=== PATIENT | male | born 1935 | race Caucasian/White ===

== ENCOUNTER 2016-12-20 20:09 | Emergency (ER) | payer OTHER ==
--- NOTE | ~2016-12-20 | CT71 ---
[facility] A Service of [facility] / [facility] RADIOLOGY TEXT RESULTS PATIENT: MINI COBURN JR LOCATION: [facility] : 35 UNIT #: [id number] AGE: [address]: Fauzia Gerardo MD SEX: M ORDER DR: [id number] [facility] [address] [place], [place] [address] [id number] E MR#: [id number] Acc #: [id number] NAME: MINI COBURN JR : 1935 SEX: M STUDY DATE/TIME: 12/20/2016 20:08 UNIT: THI ROOM: STUDY DESCRIPTION: CT Head Wo Contrast Attending Physician: Fauzia Gerardo M.D. Referring Physician: Lillian Ospina M.D. Ordering Physician: Fauzia Gerardo M.D. Primary Care Physician: Lillian Ospina M.D. MEDICAL IMAGING REPORT This report is preliminary unless electronic signature is present EXAM Head CT without contrast. DATE OF EXAM 12/20/2016 HISTORY Headache and facial pain and neck pain, status post fall with laceration to face. Patient fell today. TECHNIQUE NOTE: This CT exam was performed with one or more of the following radiation dose reduction techniques: automatic exposure control, adjustment of mA and/or kV according to patient size, and iterative reconstruction. FINDINGS Multiple axial images were obtained from the skull base to vertex without intravenous contrast administration. There is generalized enlargement of the ventricles and sulci characteristic of atrophy and there is periventricular microvascular white matter ischemic change. There is no midline shift. There is no mass or mass effect, hemorrhage or acute infarct. Right periorbital laceration and edema is noted. IMPRESSION 1. Generalized atrophy and periventricular microvascular white matter ischemic change. No acute intracranial abnormality. 2. Right periorbital laceration and edema. Dictated by... Declan Bailon M.D. [facility] A Service of [facility] / [facility] RADIOLOGY TEXT RESULTS PATIENT: MINI COBURN JR LOCATION: [facility] : 35 UNIT #: [id number] AGE: [address]: Fauzia Gerardo MD SEX: M ORDER DR: THIS IS AN ELECTRONICALLY VERIFIED REPORT Declan Bailon M.D. at 12/22/2016 2:19 PM ABEL/kateryna TD: 12/21/2016 15:39 JOB #: [id number] MEDICAL IMAGING REPORT COPY
--- NOTE | ~2016-12-20 | CT52 ---
[facility] A Service of [facility] RADIOLOGY TEXT RESULTS PATIENT: MINI COBURN JR LOCATION: [facility] : 35 UNIT #: [id number] AGE: [address]: Fauzia Gerardo MD SEX: M ORDER DR: [id number] [facility] [address] [place], [place] [address] [id number] E MR#: [id number] Acc #: [id number] NAME: MINI COBURN JR : 1935 SEX: M STUDY DATE/TIME: 12/20/2016 20:35 UNIT: THI ROOM: STUDY DESCRIPTION: CT Cervical Spine Wo Cont Attending Physician: Fauzia Gerardo M.D. Referring Physician: Lillian Ospina M.D. Ordering Physician: Fauzia Gerardo M.D. Primary Care Physician: Lillian Ospina M.D. MEDICAL IMAGING REPORT This report is preliminary unless electronic signature is present EXAM CT scan of the cervical spine without contrast. DATE OF EXAM 12/20/2016 HISTORY Neck pain, status post fall today, altered mental status with facial lacerations. TECHNIQUE NOTE: This CT exam was performed with one or more of the following radiation dose reduction techniques: automatic exposure control, adjustment of mA and/or kV according to patient size, and iterative reconstruction. FINDINGS Spiral CT was performed through the cervical spine without intrathecal contrast administration. Sagittal and coronal reconstructions were then performed through the cervical spine. Exam is somewhat limited for determination of discogenic the disease due to the lack of intrathecal contrast. The posterior vertebral body line is intact, and there is no anterolisthesis or retrolisthesis. The disc spaces are normally maintained. There is mild degenerative change involving articular facets. The bones are osteopenic. There is no CT evidence of cervical spine fracture. IMPRESSION No CT evidence for cervical spine fracture. Dictated by... Declan Bailon M.D. [facility] A Service [facility] RADIOLOGY TEXT RESULTS PATIENT: MINI COBURN JR LOCATION: [facility] : 35 UNIT #: [id number] AGE: [address]: Fauzia Gerardo MD SEX: M ORDER DR: THIS IS AN ELECTRONICALLY VERIFIED REPORT Declan Bailon M.D. at 12/22/2016 2:20 PM ABEL/kateryna TD: 12/21/2016 16:26 JOB #: [id number] MEDICAL IMAGING REPORT COPY
[~2016-12-20 20:09] MED LIST: ASPIRINEC PO; AUGMENTIN PO; B12 5,000 MCG1 EACH SL; FOLIC ACID PO; LISINOPRIL PO; LOPRESSOR PO; LORTAB 7.5-5001 TAB PO; NIFEREX-150150 MG PO; SYNTHROID25 MCG PO; ZOCOR PO
== END 2016-12-20 22:24 | disposition home or self-care (01) ==
LOC: CED 20:09
DX: S01.111A Laceration without foreign body of right eyelid and periocular area, initial encounter (principal); I10 Essential (primary) hypertension; E03.9 Hypothyroidism, unspecified; W01.0XXA Fall on same level from slipping, tripping and stumbling without subsequent striking against object, initial encounter; Y92.009 Unspecified place in unspecified non-institutional (private) residence as the place of occurrence of the external cause
CPT/HCPCS: 12013; 70450; 72125; 99284